=== PATIENT | female | born 1980 | race Caucasian/White ===

== ENCOUNTER 2016-11-09 18:05 | Emergency (ER) | payer OTHER ==
[2016-11-09 19:55] VITALS: BP 113/67
[2016-11-09] MEDS ORDERED: Amoxicillin/Clavulanate TAB* 875 MG PO ONE (20:22)
--- NOTE | 2016-11-09 21:30 | UC ---
Throat Pain/Nasal Pankaj HPI - HPI Summary HPI Summary: HEAD ACHE, SINUS CONGESTION, EAR FULLNESS, PRESSURE UNDER EYES WORSENING FOR ONE WEEK. HISTORY OF FREQUENT SINUS INFECTIONS - History of Current Complaint Chief Complaint: UCGeneralIllness Stated Complaint: SINUS COMPLAINT Time Seen by Provider: 11/09/16 19:44 Hx Obtained From: Patient Hx Last Menstrual Period: DEPO Onset/Duration: Gradual Onset, Lasting Weeks, Still Present Severity: Moderate Pain Intensity: 0 Pain Scale Used: 0-10 Numeric Cough: None Associated Signs & Symptoms: Positive: Sinus Discomfort, Nasal Discharge. Negative: Dysphagia, Hoarseness, Fever - Epiglottits Risk Factors Epiglottis Risk Factors: Negative - Allergies/Home Medications Allergies/Adverse Reactions: Allergies Allergy/AdvReac Type Severity Reaction Status Date / Time Prednisone AdvReac Intermediate See Comment Verified 11/09/16 19:55 Home Medications: Home Medications Multiple Vitamins W/ Minerals [Hair Skin and Nails Formu] 1 tab PO BID 11/09/16 [History Confirmed 11/09/16] Pregabalin CAP(*) [Lyrica CAP(*)] 200 mg PO BID 11/09/16 [History Confirmed ] Spironolactone 50 mg PO TID 11/09/16 [History Confirmed 11/09/16] PMH/Surg Hx/FS Hx/Imm Hx Previously Healthy: Yes Endocrine History Of: Denies: Diabetes Cardiovascular History Of: Denies: Hypertension, Pacemaker/ICD Respiratory History Of: Reports: Asthma GI/ History Of: Denies: Renal Disease - Surgical History Surgical History: Yes Surgery Procedure, Year, and Place: Lt BREAST BIOPSY - BENIGN - Family History Known Family History: Negative: Respiratory Disease - Social History Occupation: Employed Full-time Lives: With Family Alcohol Use: None Substance Use Type: None Smoking Status (MU): Heavy Every Day Tobacco Smoker Type: Cigarettes Amount Used/How Often: 1/4 PPD Length of Time of Smoking/Using Tobacco: 20+ YRS Review of Systems Constitutional: Negative Skin: Negative Eyes: Negative ENT: Ear Ache, Nasal Discharge Respiratory: Negative Cardiovascular: Negative Gastrointestinal: Negative Genitourinary: Negative Motor: Negative Neurovascular: Negative Musculoskeletal: Negative Neurological: Negative Psychological: Negative All Other Systems Reviewed And Are Negative: Yes Physical Exam Triage Information Reviewed: Yes Appearance: No Pain Distress, Well-Nourished, Ill-Appearing - MODERATE Vital Signs: Initial Vital Signs Temp 98.2 F 11/09/16 19:48 Pulse 99 11/09/16 19:48 Resp 16 11/09/16 19:48 BP 113/67 11/09/16 19:48 Pulse Ox 98 11/09/16 19:48 Vital Signs Reviewed: Yes Eye Exam: Normal Eyes: Positive: Conjunctiva Clear ENT: Positive: Hearing grossly normal, Pharynx normal, Nasal congestion, TM bulging, TM dull Dental Exam: Normal Neck exam: Normal Neck: Positive: Supple, Nontender, No Lymphadenopathy Respiratory Exam: Normal Respiratory: Positive: Chest non-tender, Lungs clear, Normal breath sounds, No respiratory distress, No accessory muscle use Cardiovascular Exam: Normal Cardiovascular: Positive: RRR, No Murmur, Pulses Normal Abdominal Exam: Normal Abdomen Description: Positive: Nontender, No Organomegaly Musculoskeletal Exam: Normal Musculoskeletal: Positive: Strength Intact, ROM Intact Neurological Exam: Normal Psychological Exam: Normal Psychological: Positive: Normal Response To Family Skin Exam: Normal Throat Pain/Nasal Course/Dx - Differential Dx/Diagnosis Differential Diagnosis/HQI/PQRI: Otitis Media, Sinusitis, URI Provider Diagnoses: SINUSITIS Discharge - Discharge Plan Condition: Stable Disposition: HOME Prescriptions: Amoxicillin/Clavulanate TAB* [Augmentin TAB 875*] 875 mg PO BID #20 tab Meclizine TAB* [Antivert 12.5 TAB*] 25 mg PO TID PRN #14 tab PRN Reason: Dizziness Patient Education Materials: Sinusitis (ED) Referrals: LUNA Haq [Primary Care Provider] -
== END 2016-11-09 20:30 | disposition home or self-care (01) ==
LOC: UCCORT 18:05
DX: J32.9 Chronic sinusitis, unspecified (principal); J45.909 Unspecified asthma, uncomplicated; F17.210 Nicotine dependence, cigarettes, uncomplicated
CPT/HCPCS: 99212; A9270-GY; G0463

== ENCOUNTER 2017-08-15 06:02 | Day surgery (SDC) | payer OTHER ==
--- NOTE | 2017-08-08 07:25 | HP ---
PREOPERATIVE HISTORY AND PHYSICAL: DATE OF ADMISSION/SURGERY: 08/15/17 ATTENDING SURGEONS: Luis Goyal MD, and Tyler Khan MD * (DICTATD BY ELI OMER) PROCEDURE: Right knee arthroscopic surgery by Dr. Goyal and right posterior ankle ganglion cyst excision with Dr. Khan. CHIEF COMPLAINT: Right knee pain and right ankle pain. HISTORY OF PRESENT ILLNESS: Aurora is a 37-year-old female, who presents to the clinic for right knee pain due to a medial meniscus injury. She has failed conservative measures to include injection and therapy and therefore agreed to undergo a right knee arthroscopic surgery with Dr. Goyal. She also has a symptomatic right posterior ankle ganglion that is recurrent and has failed conservative measures and therefore, agreed to undergo a right posterior ankle ganglion cyst excision with Dr. Khan. PAST MEDICAL HISTORY: Asthma and allergy. PAST SURGICAL HISTORY: Breast biopsy. MEDICATIONS: 1. Lyrica 100 mg 1 by mouth 3 times a day. 2. Loratadine 10 mg 1 by mouth daily. 3. Spironolactone 50 mg 3 by mouth daily. 4. Caltrate 600 mg-800 mg plus vitamin D, take 1 capsule by mouth twice daily. 5. Multivitamin daily. 6. Plexus BioCleanse daily. 7. Probiotic 1 by mouth every day. ALLERGIES: PREDNISONE. FAMILY HISTORY: Positive for diabetes and cancer. SOCIAL HISTORY: She works as a dental hygienist. She smokes 3 to 5 cigarettes a day and is working on smoking cessation. She reports occasional alcohol consumption. REVIEW OF SYSTEMS: A 14-point review of systems was reviewed with the patient, positive for right knee pain and right ankle pain, otherwise negative. Denies syncope, fevers, chills, chest pain, shortness of breath, history of DVT or PE, history of bleeding disorders. PHYSICAL EXAMINATION GENERAL: Well-developed, well-nourished 37-year-old female, in no acute distress. Alert and oriented x3. Appropriate mood and affect. VITAL SIGNS: Height 64, weight 130. Blood pressure 114/72, respiratory rate 20 , temperature 98.5. BMI 22.3. HEENT: Normocephalic, atraumatic. PERRLA. Throat: Clear. NECK: Supple. PULMONARY: Lungs clear to auscultation bilaterally. No wheezing, rhonchi, or rales. CARDIO: Regular rate and rhythm. S1, S2. No murmurs, gallops, or rubs. No edema. ABDOMEN: Positive bowel sounds, soft, and nontender. NEURO: Alert and oriented x3. Cranial nerves grossly intact. Sensation is intact to light touch. MUSCULOSKELETAL: Right lower extremity, the skin is intact. No warmth or erythema. Trace effusion in the knee. Range of motion 0 to 135. Stable with varus and valgus stress. Stable Varun. Negative posterior drawer. Mild discomfort to Jaden. Mild tenderness over the patellofemoral joint. She has ankle range of motion of 10 to 40. +5/5 strength in ankle dorsiflexion and plantar flexion. Tenderness over the posterior lateral aspect of the ankle with a palpable cyst. Calves soft, nontender. +2 PT pulses. Sensation intact to light touch distally. DIAGNOSTIC STUDIES/LAB DATA: MRI of the right ankle revealed cyst in the posterolateral ankle. MRI of the right knee reveals abnormality in the medial meniscus. IMPRESSION: Possible right knee medial meniscus tear and recurrent right posterolateral ankle ganglion cyst. PLAN: The patient is scheduled to undergo a right knee arthroscopic surgery with Dr. Goyal and right posterior ankle ganglion cyst excision with Dr. Khan to follow on 08/15/17. She will return to the office in 10 to 14 days postop for followup and suture removal. ELI OMER [id number]/[facility] #: [id number] KIRSTEN
[~2017-08-15 06:02] MED LIST: Buffered Lidocaine 0.9% SYRIN* 5 ML/SYR SYRINGE INTRADERM ONE
[2017-08-15] MEDS ORDERED: ceFAZolin 2 GM PREMIX (*) 2 GM/50 ML BAG IVPB ONE (06:15)
[2017-08-15] MEDS ORDERED: Buffered Lidocaine 0.9% SYRIN* 5 ML/SYR SYRINGE ONE (06:15)
[2017-08-15] MEDS ORDERED: Lidocaine 1% MPF wEPI 200,000* 30 ML SDV ONE (07:03)
[2017-08-15] MEDS ORDERED: Bupivacaine 0.25% SDV* 30 ML ONE ×2 (07:03→08:18)
[2017-08-15] MEDS ORDERED: Midazolam* 1 MG/ML 2 ML VIAL (2 MG) ONE (07:22)
[2017-08-15] MEDS ORDERED: Propofol* 10 MG/ML 20 ML BTL IV PUSH ONE (07:22)
[2017-08-15] MEDS ORDERED: fentaNYL* 50 MCG/ML 2 ML VIAL (100 MCG VIAL) ONE (07:22)
[2017-08-15] MEDS ORDERED: Dexamethasone IV* 4 MG/ML 1 ML (4 MG) ONE (07:37)
[2017-08-15] MEDS ORDERED: Ondansetron INJ* 2 MG/ML VIAL ONE (07:54)
[2017-08-15] MEDS ORDERED: Ketorolac INJ* 30 MG/ML 1 ML VIAL ONE (07:54)
[2017-08-15] MEDS ORDERED: Naloxone* 0.4 MG/ML 1 ML VIAL IV PRN (08:00)
[2017-08-15] MEDS ORDERED: HYDROmorphone INJ* 1 MG/ML CARPUJECT SYRINGE IV PRN (08:00)
[2017-08-15] MEDS ORDERED: oxyCODONE/Acetamin 5/325 MG* TAB PO PRN (08:00)
[2017-08-15] MEDS ORDERED: fentaNYL* 50 MCG/ML 2 ML VIAL (100 MCG VIAL) IV PRN (08:00)
[2017-08-15] MEDS ORDERED: HYDROcodone/ACETAMIN 5-325 MG* 1 TAB PO PRN (08:00)
[2017-08-15] MEDS ORDERED: DiMENhydriNATE IV* 50 MG/ML VIAL IV PUSH PRN (08:00)
[2017-08-15] MEDS ORDERED: Ondansetron INJ* 2 MG/ML VIAL IV PRN (08:00)
[2017-08-15] MEDS ORDERED: oxyCODONE/Acetamin 5/325 MG* TAB ONE (10:02)
[2017-08-15 10:04] VITALS: BP 111/78
--- NOTE | 2017-08-15 22:09 | OP ---
CC: PAMELA, LUNA [place] * DATE OF OPERATION: 08/15/17 - [facility] DATE OF : 82 SURGEON: Luis Goyal MD LABOR TRAINER: ELI Smith. An bilingual administrative assistant was needed for the entirety of the case to help with positioning, retraction, and utilized throughout all portions of the case. This is a case that was done in conjunction with Dr. Khan. Please see his operative note for his portion of the case. ANESTHESIOLOGIST: Dr. Henderson. ANESTHESIA: General. PRE-OP DIAGNOSIS: Right knee synovitis and impingement. POST-OP DIAGNOSES: Right knee synovitis and impingement with lateral meniscal root tear. OPERATIVE PROCEDURE: Right knee arthroscopy with: 1. Synovectomy of the anterior medial and lateral compartments. 2. Partial lateral meniscectomy. COMPLICATIONS: None. ESTIMATED BLOOD LOSS: Minimal. TOURNIQUET TIME: Zero minutes. INDICATIONS: Aurora Palmer is a 37-year-old female who has had persistent knee pain with anterior base knee pain as well as deep posterior ache that has failed conservative management. She has tried months and months of physical therapy and multiple injections. At this point, repeated steroid injections were found to be possibly harming for her cartilage, therefore a diagnostic arthroscopy was recommended. Risks and benefits of surgery were discussed at length and include, but are not limited to bleeding; infection; damage to nerves , vessels, surrounding structures; wound nonhealing; persistent pain; need for further surgery; scarring; stiffness; incomplete relief of symptoms and risks of anesthesia. DESCRIPTION OF PROCEDURE: The patient was greeted in the preoperative area by the attending surgeon. Correct extremity was marked and consent was confirmed. The patient was brought back to the operating suite, she was placed in supine position on the operating table. She then underwent general anesthesia and LMA intubation after which the unsterile tourniquet was placed high on the proximal thigh. The lateral post was positioned. The right leg was then prepped and draped in the usual sterile fashion using a chlorhexidine soap, scrub, and alcohol wipe, and a final prep with ChloraPrep. After appropriate surgical pause indicating site, side, procedure, and administration of antibiotics, the knee was intra-articularly injected with 1% lidocaine with epi. The lateral portal was made sharply with an 11-blade. The scope was introduced into the joint. Joint was examined. There was abundant synovitis and fat pad, it was difficult to visualize patella due to the abundant synovitis. There was plica medially and laterally. The ligamentum was still intact. The anteromedial portal was made in an outside-in fashion. Using a 18-gauge needle for localization, the shaver was used to debride back the abundant fat pad in the ligamentum. Once this was done, the medial compartment was examined. There were grade 0 to 1 changes to the medial femoral condyle. The medial meniscus was intact, it was probed, there was no evidence of unstable tear. There was no evidence of posteromedial tear. The knee was placed in [id number] position. There was some softening and grade 1 to 2 changes of the lateral plateau and particularly posterior aspect of the lateral compartment. There was fraying of the lateral meniscus as well as tearing of the posterior root of approximately 30%. The shaver was used to debride this back and also debride the unstable fraying of the body of the meniscus. The remainder of the meniscus was probed and found to be intact. The attention was directed anteriorly. Abundant synovectomy was done using a shaver as well as electrocautery device. This was tracked laterally as well as medially. The plicae were removed. The knee cap was visualized. There were grade 1 changes to the patella and the trochlea. There was small evidence of fissuring, but no full thickness tears, no unstable tearing. The knee was thoroughly lavaged with sterile saline. The wounds were copiously irrigated with sterile saline. The portals were closed with 3-0 nylon. The knee was intra- articularly injected with 0.25% Marcaine plain. Sterile dressings were applied. She was then prepped and draped for Dr. Khan's procedure. After Dr. Khan's procedure, she was awoken from anesthesia and transferred to PACU in stable condition. POSTOPERATIVE PLAN: With respect to my surgery, she is allowed to bend and straighten as soon as she feels comfortable. She can weight bear as soon as Dr. Khan allows her to. Otherwise, she will be on crutches. DVT prophylaxis was considered, but deferred due to no previous personal or family history. I will see the patient back in about 10 to 14 days in conjunction with Dr. Khan. [id number]/[facility] #: [id number] [facility]
--- NOTE | 2017-08-15 23:34 | OP ---
DATE OF OPERATION: 08/15/17 - [facility] DATE OF : 82 SURGEON: Tyler Khan MD. INSURANCE SOLICITOR: ELI Smith. ANESTHESIOLOGIST: Dr. Henderson. ANESTHESIA: General endotracheal anesthesia with local anesthesia provided by the surgeon. PRE-OP DIAGNOSIS: Right posterolateral ankle pain and posterior ankle ganglion cyst. POST-OP DIAGNOSES: 1. Right posterior ankle ganglion cyst. 2. Peroneus brevis and peroneus longus tenosynovitis. 3. Peroneus brevis low lying muscle belly. OPERATIVE PROCEDURE: 1. Excision of posterior ankle ganglion cyst. 2. Tenolysis and debridement of peroneus longus tenosynovitis. 3. Tenolysis, debridement, excision of low lying muscle belly of peroneus brevis. TOURNIQUET TIME: Less than 1 hour at 250 mmHg with a well-padded thigh tourniquet. ESTIMATED BLOOD LOSS: Minimal. COMPLICATIONS: None. IMPLANTS: None. STATUS: Stable from the operating room to the recovery room, then home. INDICATIONS: Aurora has had longstanding posterolateral ankle pain. She has a known ganglion cyst in the posterior aspect of the ankle, which had been aspirated and injected a couple of times prior to her seeing me. It has continued to recur and she has continued to have posterolateral ankle pain. We did discuss both nonoperative and operative treatment options at length in the office as well as in the preoperative holding area and she did express her desire to move forward with surgery. Further, the nature and risks of surgery were reviewed in careful detail in the office as well as in the preoperative holding area. Our discussions regarding the risks of surgery included but were not limited to infection, wound problems, nerve injury, neuroma, chronic regional pain syndrome, persistent symptoms, recurrence of the cyst, persistent problems, failure of the surgery, and even a remote chance of a catastrophic complication including the loss of limb. DESCRIPTION OF PROCEDURE: The patient was seen in the preoperative holding unit and informed written consent was obtained. The appropriate extremity was marked. The patient was then brought to the operating room and carefully positioned on the operating room table. Anesthesia was induced. All bony prominences were padded with great care. A chlorhexidine based pre-scrub was performed followed by a standard prep and drape with ChloraPrep. Surgical safety pause was then conducted in which we confirmed the appropriate patient, extremity, planned procedure, availability of equipment, indication and administration of prophylactic antibiotics and DVT prophylaxis in the form of a compression boot on the nonsurgical extremity. A well-padded thigh tourniquet was applied prior to prepping and draping. The tourniquet was inflated after an Esmarch exsanguination. I began with an approximately 6-cm incision overlying the distal fibula. Dissection was carried down bluntly through the soft tissues to the level of the periosteum and superficial peroneal retinaculum. Superficial hemostasis was obtained. Care was taken to protect both the superficial peroneal nerve as well as the sural nerve, which were not visualized during the procedure. The superior peroneal retinaculum layer was defined. At this point, I sharply took down the superior peroneal retinaculum off the posterior aspect of the fibula. Care was taken to protect the tendons while doing this. The tendons were exposed. There was a considerable amount of tenosynovitis surrounding both the peroneus brevis and peroneus longus tendons. Additionally, there was a very low lying muscle belly of the peroneus brevis which went all the way down to where the tendons curve around the distal fibula. I performed a tenosynovectomy of the peroneus longus. I then performed a tenosynovectomy of the peroneus brevis and excised the distal low lying muscle belly. I carefully inspected the tendons and there were no tears seen in the tendons. At this point, I dislocated the tendons anteriorly with the use of Ida drains and incised through the floor of the peroneal tendon sheath to access the posterior ankle joint. The ganglion was then encountered and carefully dissected around its periphery using blunt dissection. Once the ganglion was well defined it was excised in its totality and amputated at its stalk. The stalk was then thoroughly coagulated. Hemostasis was then achieved and the wound was copiously irrigated. While she did have a bit of a shallow retrofibular groove, she has never complained of peroneal instability and did not have any on exam, so this was left as is. The tendons were reduced. I repaired the superior peroneal retinaculum utilizing #1 Vicryl suture in transosseous horizontal mattress fashion, multiple sutures were utilized. This was then appropriately tensioned. The remainder of the superior peroneal retinaculum was then oversewn to the periosteum of the fibula to provide a nice closure of the superior peroneal retinaculum, a [place] was able to be slid up the peroneal sheath showing that there was plenty of room for the tendons and the sheath. Again, the wound was copiously irrigated and then closed in a layered fashion utilizing 3-0 Monocryl and 3-0 nylon. A sterile dressing was then applied followed by a splint with the ankle in a neutral position. All needle and sponge counts were correct at the end of the case. The patient was awakened from anesthesia and transferred to the recovery room in stable condition. There were no complications. ATTESTATION: I attest that I was present, scrubbed and performed the entire procedure myself. POSTOPERATIVE PLAN: The patient will remain nonweightbearing for an anticipated duration of 6 weeks. Follow up will be in 2 weeks for likely suture removal, Steri- Strip application, and transition into a nonweightbearing short-leg cast. [id number]/[facility] #: [id number] [facility]
== END 2017-08-15 10:34 | disposition home or self-care (01) ==
LOC: OR 06:02
PROVIDERS: ATTEND Orthopaedic Surgery
DX: M23.261 Derangement of other lateral meniscus due to old tear or injury, right knee (principal); M65.861 Other synovitis and tenosynovitis, right lower leg; M67.471 Ganglion, right ankle and foot; M65.871 Other synovitis and tenosynovitis, right ankle and foot; F17.210 Nicotine dependence, cigarettes, uncomplicated
CPT/HCPCS: 81025; 88304; A9270-GY; C1776; J0690; J1100; J1885; J2001; J2250; J2405; J2704; J3010

== ENCOUNTER 2017-12-24 14:30 | Emergency (ER) | payer OTHER ==
--- OUTSIDE RECORDS SUMMARY | 2017-12-24 14:51 | XMS REPORT ---
:1980 External Reference #:[id number] Author Organization [facility] Address [address] [place] [address] Phone [phone] Care Team Providers Name Role Phone Trevor Galan MD Care Team Information Aligner Unavailable Trevor Galan MD Primary Care Physician Unavailable Payers Type Date Identification Numbers Payment Provider Subscriber Commercial Policy Number: [id number] [facility] Aurora Palmer PayID: [id number] [address] [place] [address] Problems Date Description Provider Status Onset: 05/15/2017 Smokes tobacco daily PATRICIA Rodgers Active Onset: 11/03/2016 Uncomplicated moderate persistent Eilna Sauer Fenstermacher, Active asthma RPA-C Onset: 10/12/2015 Moderate persistent asthma, Elina SGreta Fenstermacher, Active uncomplicated RPA-C Onset: 10/12/2015 Allergic rhinitis Elina Elkinsr, Active RPA-C Onset: 10/12/2015 Allergic rhinitis due to pollen Elina Cole, Active RPA-C Social History Type Date Description Comments Smoke-Free Home is not smoke-free Pets 1 cat Cigarette Use Light tobacco smoker (10 or fewer cigarettes/day) Smoking Light tobacco smoker (10 or fewer cigarettes/day) Allergies, Adverse Reactions, Alerts Date Description Reaction Status Severity Comments 08/26/2013 NKDA active Medications Medication Date Status Form Strength Qnty SIG Indications Ordering Provider Melzal Allergy 11/27 Active Tablets 5mg 30tab take 1 J30.1 Angelo 24H s tablet (5 Deloris Carbone MD mg) by oral route once daily as needed Qnasl Childrens 05/15 Active Aerosol 40mcg/Act 1unit 2 puff oph /2016 s once a Deloris Carbone MD day Nasonex 05/15 Active Suspension 50mcg/Act 1unit spray 2 J45.40 oph s sprays in Deloris Carbone MD each nostril by intranasa l route once daily. Loratadine 10/11 Active Tablets 10mg 30tab Take One J30.1 oph s Tablet By Deloris Carbone MD Mouth Daily as Needed. Ventolin HFA 09/01 Active Aerosol 108(90Bas 8gm inhale 2 e) puffs by Deloris Carbone MD mcg/Act inhalatio n route q4 hours as needed Lyrica Active Capsules 100mg take 1 Unknown /0000 capsule (100 mg) by oral route 3 times per day Spironolactone Active Tablets 100mg take 1 Unknown /0000 tablet (100 mg) by oral route once daily Caltrate 600+D Active Chewtabs 600-800mg chew 2 Unknown Soft /0000 -Unit tablets by oral route daily Advair HFA Active J45.40 Unknown /0000 Advair HFA 00 Active J45.40 Unknown /0000 Mometasone 05/15 Hx Suspension 50mcg/Act 17gm instill 2 J45.40 Christopher sprays Deloris Carbone MD - into each 11/27 nostril once daily Qnasl 01/17 Hx Aerosol 80mcg/Act 8.700 2 puffs J30.1 oph /2015 gm each Deloris Carbone MD - nostril 11/03 every Nasonex 10/11 Hx Suspension 50mcg/Act 1unit spray 2 J30.1 oph /2015 s sprays in Deloris Carbone MD - each 01/17 nostril by intranasa l route once daily. Nasacort 10/10 Hx Aerosol 55mcg/Act 1unit 2 sprays formerly [facility] 24HR /2015 s in each Deloris Carbone MD - nostril 11/03 once day Dulera 03/16 Hx Aerosol 200-5mcg/ 13gm inhale 2 Act puffs by Deloris Carbone MD - inhalatio 11/03 n route times per day in the morning and evening Nasonex 09/01 Hx Suspension 50mcg/Act 1unit spray 2 s sprays in Deloris Carbone MD - each 10/11 nostr by intranasa l route once daily Biotin Hx - 05/15 Magnesium Oxide Hx Capsules 400mg - 11/27 Hair Skin Nails Hx Capsules - 11/27 Multivitamins Hx Capsules - 11/27 Medications Administered in Office Medication Date Status Form Strength Qnty SIG Indications Ordering Provider Allergy 12/12/ Administered Injection Christopher Injection 2 2016 Deloris Carbone MD Or More Allergy 11/21/ Administered Injection Christopher Injection 2 2016 Deloris Carbone MD Or More Allergy 11/14/ Administered Injection Christopher Injection 2 2016 Deloris Carbone MD Or More Allergy 11/07/ Administered Injection Christopher Injection 2 2016 Deloris Carbone MD Or More Allergy 09/26/ Administered Injection Christopher Injection 2 2016 Deloris Carbone MD Or More Allergy 09/12/ Administered Injection Christopher Injection 2 2016 Deloris Carbone MD Or More Allergy 08/29/ Administered Injection Christopher Injection 2 2016 Deloris Carbone MD Or More Allergy 08/15/ Administered Injection Christopher Injection 2 2016 Deloris Carbone MD Or More Allergy 07/18/ Administered Injection Christopher Injection 2 2015 Deloris Carbone MD Or More Allergy 07/04/ Administered Injection Christopher Injection 2 2015 Deloris Carbone MD Or More Allergy 06/20/ Administered Injection Christopher Injection 2 2015 Deloris Carbone MD Or More Allergy 06/06/ Administered Injection Christopher Injection 2 2015 Deloris Carbone MD Or More Allergy 05/23/ Administered Injection Christopher Injection 2 2015 Deloris Carbone MD Or More Allergy 05/09/ Administered Injection Christopher Injection 2 2015 Deloris Carbone MD Or More Allergy 04/25/ Administered Injection Christopher Injection 2 2015 Deloris Carbone MD Or More Allergy 04/11/ Administered Injection Christopher Injection 2 2015 Deloris Carbone MD Or More Allergy 03/21/ Administered Injection Christopher Injection 2 2015 Deloris Carbone MD Or More Allergy // Administered Injection Christopher Injection 2 2015 Deloris Carbone MD Or More Allergy 02/21/ Administered Injection Christopher Injection 2 2015 Deloris Carbone MD Or More Allergy 02/02/ Administered Injection Christopher Injection 2 2015 Deloris Carbone MD Or More Allergy 01/17/ Administered Injection Christopher Injection 2 2015 Deloris Carbone MD Or More Allergy 12/22/ Administered Injection Christopher Injection 2 2015 Deloris Carbone MD Or More Allergy 12/08/ Administered Injection Christopher Injection 2 2015 Deloris Carbone MD Or More Allergy 11/22/ Administered Injection Christopher Injection 2 2015 Deloris Carbone MD Or More Allergy 11/17/ Administered Injection Christopher Injection 2 2015 Deloris Carbone MD Or More Allergy 11/10/ Administered Injection Christopher Injection 2 2015 Deloris Carbone MD Or More Allergy // Administered Injection Christopher Injection 2 2015 Deloris Carbone MD Or More Allergy 10/27/ Administered Injection Christopher Injection 2 2015 Deloris Carbone MD Or More Allergy 10/20/ Administered Injection Christopher Injection 2 2015 Deloris Carbone MD Or More Allergy 10/11/ Administered Injection Christopher Injection 2 2015 Deloris Carbone MD Or More Allergy // Administered Injection Christopher Injection 2 2015 Deloris Carbone MD Or More Allergy 03// Administered Injection Christopher Injection 2 2015 Deloris Carbone MD Or More Allergy 09/23/ Administered Injection Christopher Injection 2 2015 Deloris Carbnoe MD Or More Allergy 09/16/ Administered Injection Christopher Injection 2 2015 Deloris Carbone MD Or More Allergy 09/09/ Administered Injection Christopher Injection 2 2015 Deloris Carbone MD Or More Allergy 02// Administered Injection Christopher Injection 2 2015 Deloris Carbone MD Or More Allergy 08/26/ Administered Injection Christopher Injection 2 2015 Deloris Carbone MD Or More Allergy 08/10/ Administered Injection Christopher Injection 2 2015 Deloris Carbone MD Or More Allergy 08/05/ Administered Injection Christopher Injection 2 2015 Deloris Carbone MD Or More Allergy 07/27/ Administered Injection Christopher Injection 2 2014 Deloris Carbone MD Or More Allergy 07/20/ Administered Injection Christopher Injection 2 2014 Deloris Carbone MD Or More Allergy 07/15/ Administered Injection Christopher Injection 2 2014 Deloris Carbone MD Or More Allergy 07/08/ Administered Injection Christopher Injection 2 2014 Deloris Carbone MD Or More Allergy 07/01/ Administered Injection Christopher Injection 2 2014 Deloris Carbone MD Or More Allergy 06/22/ Administered Injection Christopher Injection 2 2014 Deloris Carbone MD Or More Allergy 06/17/ Administered Injection Christopher Injection 2 2014 Deloris Carbone MD Or More Allergy 06/10/ Administered Injection Christopher Injection 2 2014 Deloris Carbone MD Or More Allergy 06/01/ Administered Injection Christopher Injection 2 2014 Deloris Carbone MD Or More Allergy 05/27/ Administered Injection Christopher Injection 2 2014 Deloris Carbone MD Or More Vital Signs Date Vital Result Comment 11/27/2017 BP Systolic 106 mmHg BP Diastolic 72 mmHg Height 64 inches 5'4" Weight 134.00 lb BMI (Body Mass Index) 23.0 kg/m2 Heart Rate 89 /min Body Temperature 98.7 F O2 % BldC Oximetry 97 % 05/15/2017 BP Systolic 108 mmHg BP Diastolic 64 mmHg Height 64 inches 5'4" Weight 133.00 lb BMI (Body Mass Index) 22.8 kg/m2 Heart Rate 90 /min Respiratory Rate 11 /min Body Temperature 98.6 F O2 % BldC Oximetry 98 % 11/03/2016 BP Systolic 115 mmHg BP Diastolic 79 mmHg Height 64 inches Weight 135.00 lb BMI (Body Mass Index) 23.2 kg/m2 Heart Rate 98 /min Respiratory Rate 16 /min Body Temperature 99.3 F O2 % BldC Oximetry 97 % 10/12/2015 BP Systolic 116 mmHg BP Diastolic 79 mmHg Height 64 inches 5'4" Weight 130.00 lb BMI (Body Mass Index) 22.3 kg/m2 Heart Rate 91 /min Respiratory Rate 16 /min 04/01/2015 BP Systolic 112 mmHg BP Diastolic 77 mmHg Height 64 inches Weight 130.00 lb Heart Rate 90 /min 03/16/2015 BP Systolic 98 mmHg BP Diastolic 70 mmHg Height 64 inches Weight 130.00 lb Heart Rate 68 /min 03/12/2014 BP Systolic 122 mmHg BP Diastolic 71 mmHg Height 64 inches Weight 120.00 lb Heart Rate 80 /min 09/18/2013 BP Systolic 110 mmHg BP Diastolic 71 mmHg Height 64 inches Weight 118.00 lb Heart Rate 68 /min 08/26/2013 BP Systolic 106 mmHg BP Diastolic 65 mmHg Height 64 inches Weight 118.00 lb Heart Rate 93 /min Results Test Date Test Result H/L Range Note Order 11/27/2017 Nitric Oxide <pending> PFT Supplies <pending> PFT With Bronchodilator <pending> Procedures Date CPT Code Description Status 11/27/2017 55057 Nitric Oxide Gas Determination Completed 11/27/2017 52624 Nitric Oxide Gas Determination Completed 11/27/2017 76958 Bronchodilation Responsiveness Spirometry Pre/Post Completed Bronchodil Adm 11/27/2017 58265 Bronchodilation Responsiveness Spirometry Pre/Post Completed Bronchodil Adm 05/15/2017 43591 Nitric Oxide Gas Determination Completed 05/15/2017 30635 Nitric Oxide Gas Determination Completed 05/15/2017 50336 Bronchodilation Responsiveness Spirometry Pre/Post Completed Bronchodil Adm 05/15/2017 39964 Bronchodilation Responsiveness Spirometry Pre/Post Completed Bronchodil Adm 12/12/2016 26754 Allergy Injection 2 Or More Completed 11/21/2016 33367 Allergy Injection 2 Or More Completed 11/14/2016 94182 Allergy Injection 2 Or More Completed 11/07/2016 36141 Allergy Injection 2 Or More Completed 11/03/2016 01568 Nitric Oxide Gas Determination Completed 11/03/2016 40046 Bronchodilation Responsiveness Spirometry Pre/Post Completed Bronchodil Adm 09/26/2016 03908 Allergy Injection 2 Or More Completed 09/12/2016 25394 Allergy Injection 2 Or More Completed 08/29/2016 29819 Allergy Injection 2 Or More Completed 08/15/2016 40805 Allergy Injection 2 Or More Completed 07/18/2016 17393 Allergy Injection 2 Or More Completed 07/04/2016 72527 Allergy Injection 2 Or More Completed 06/20/2016 09039 Allergy Injection 2 Or More Completed 06/06/2016 09382 Allergy Injection 2 Or More Completed 05/23/2016 41671 Allergy Injection 2 Or More Completed 05/09/2016 40486 Allergy Injection 2 Or More Completed 04/25/2016 83278 Allergy Injection 2 Or More Completed 04/11/2016 27208 Allergy Injection 2 Or More Completed 03/21/2016 66688 Allergy Injection 2 Or More Completed 03/07/2016 07999 Allergy Injection 2 Or More Completed 02/29/2016 58863 Allergy Antigens Single Or Multiple Completed 02/22/2016 94390 Allergy Injection 2 Or More Completed 02/03/2016 57556 Allergy Injection 2 Or More Completed 01/18/2016 26995 Allergy Injection 2 Or More Completed 12/23/2015 72907 Allergy Injection 2 Or More Completed 12/09/2015 59289 Allergy Injection 2 Or More Completed 11/23/2015 69025 Allergy Injection 2 Or More Completed 11/18/2015 35371 Allergy Injection 2 Or More Completed 11/11/2015 05759 Allergy Injection 2 Or More Completed 11/04/2015 82159 Allergy Injection 2 Or More Completed 10/28/2015 94933 Allergy Injection 2 Or More Completed 10/21/2015 33343 Allergy Injection 2 Or More Completed 10/12/2015 16971 Allergy Injection 2 Or More Completed 10/07/2015 61142 Allergy Injection 2 Or More Completed 09/30/2015 42228 Allergy Injection 2 Or More Completed 09/23/2015 50436 Allergy Injection 2 Or More Completed 09/16/2015 56446 Allergy Injection 2 Or More Completed 09/09/2015 80662 Allergy Injection 2 Or More Completed 09/02/2015 72597 Allergy Injection 2 Or More Completed 08/26/2015 36343 Allergy Injection 2 Or More Completed 08/10/2015 26886 Allergy Injection 2 Or More Completed 08/05/2015 55713 Allergy Injection 2 Or More Completed 07/27/2015 23646 Allergy Injection 2 Or More Completed 07/20/2015 12926 Allergy Injection 2 Or More Completed 07/15/2015 16052 Allergy Injection 2 Or More Completed 07/08/2015 45928 Allergy Injection 2 Or More Completed 07/01/2015 59274 Allergy Injection 2 Or More Completed 06/22/2015 62586 Allergy Injection 2 Or More Completed 06/17/2015 44807 Allergy Injection 2 Or More Completed 06/10/2015 76935 Allergy Injection 2 Or More Completed 06/01/2015 43112 Allergy Injection 2 Or More Completed 05/27/2015 14341 Allergy Injection 2 Or More Completed Encounters Type Date Location Provider CPT E/M Dx Office Visit 11/27/2017 3:45p ELI Ledezma 56341 J30.1 J30.89 J45.40 Z72.0 Office Visit 05/15/2017 3:30p PATRICIA Strauss 63044 J30.1 J30.89 J45.40 Z72.0 Office Visit 11/03/2016 2:30p JOHN Young 85385 J45.40 J30.1 J30.89 Office Visit 10/12/2015 8:45a [place] Elina RojasGreta Cole, [facility] 58760 J30.1 J. J45.40 Plan of Care Future Appointment(s):05/30/2018 3:30 pm - ELI Puente at [id number] - ELI PuenteJ30.1 Allergic rhinitis due to pollenNew Medication:Xyzal Allergy 24HR 5 mgFollow up:6 months, PFT and NIOX lfibjO29.89 Other allergic bxfrkedxR84.40 Moderate persistent asthma, uncomplicatedComments:Patient is doing well. Patient's PFT is within normal range today. Patient's exhaled nitric oxide is normal at less than 5 ppb. Patient to continue using Qnasl, 40 mcg, for prophylaxis of her nose and Xyzal for breakthrough nasal symptoms. Patient to use Ventolin for breakthrough chest symptoms.Patient to use HEPA air filter for her bedroom. Patient plans to stop smoking before our next appt. atthis office.Patient to try saline nasal mist to help with nasal symptoms.Z72.0 Tobacco use
--- OUTSIDE RECORDS SUMMARY | 2017-12-24 14:51 | XMS REPORT ---
:1980 External Reference #:[id number] Author Organization [facility] Address [address] [place] [address] Phone [phone] Care Team Providers Name Role Phone Trevor Galan MD Care Team Information Color Tester Unavailable Trevor Galan MD Primary Care Physician Unavailable Payers Type Date Identification Numbers Payment Provider Subscriber Commercial Policy Number: [id number] [facility] Aurora Palmer PayID: [id number] [address] [place] [address] Problems Date Description Provider Status Onset: 05/15/2017 Smokes tobacco daily PATRICIA Rodgers Active Onset: 11/03/2016 Uncomplicated moderate persistent Elina Sauer Fenstermacher, Active asthma RPA-C Onset: 10/12/2015 [...] Form Strength Qnty SIG Indications Ordering Provider Qnasl Childrens 05/15 Active Aerosol 40mcg/Act 1unit 2 puff s once a Deloris Carbone MD day Loratadine 10/11 Active Tablets 10mg 30tab Take One J30.1 s Tablet By Deloris Carbone MD Mouth [...] /0000 -Unit tablets by oral route daily Qnasl 01/17 Hx Aerosol 80mcg/Act 8.700 2 puffs J30.1 /2015 gm each Deloris Carbone MD - nostril 11/03 every Nasonex 10/11 Hx Suspension 50mcg/Act 1unit spray 2 J30.1 s sprays in Deloris Carbone MD - each 01/17 nostr by intranasa l route once daily. Nasacort 10/10 Hx Aerosol 55mcg/Act 1unit 2 sprays [place] [facility] 24H s in each Deloris Carbone MD - nostril 11/03 once day Dulera 03/16 Hx Aerosol 200-5mcg/ 13gm inhale 2 Act puffs by Deloris Carbone MD - inhalatio 11/03 n route times per day in the morning and evening Nasonex 09/01 Hx Suspension 50mcg/Act 1unit spray 2 s sprays in Deloris Carbone MD - each 10/11 nostril by intranasa l route once daily Biotin 00/ Hx Unknown / - 05/15 Magnesium Oxide Hx Capsules 400mg / - 11/27 Hair Skin Nails Hx Capsules Unknown - 11/27 Multivitamins Hx Capsules / - 11/27 Medications Administered in Office Medication Date Status Form Strength Qnty SIG Indications Ordering Provider Allergy 05/16/ Administered Injection Christopher Injection 2 2016 Deloris [...] 2015 Deloris Carbone MD Or More Allergy 03/07/ Administered Injection Christopher Injection 2 2015 Deloris [...] 2015 Deloris Carbone MD Or More Allergy 11/03/ Administered Injection Christopher Injection 2 2015 Deloris Carbone MD Or More Allergy 10/27/ Administered Injection Christopher Injection 2 2015 Deloris Carbone MD Or More Allergy 10/20/ Administered Injection Christopher Injection 2 2015 Deloris Carbone MD Or More Allergy 10/11/ Administered Injection Christopher Injection 2 2015 Deloris Carbone MD Or More Allergy 10/06/ Administered Injection Christopher Injection 2 2015 Deloris Carbone MD Or More Allergy 09/29/ Administered Injection Christopher Injection 2 2015 Deloris Carbone MD Or More Allergy 09/23/ Administered Injection Christopher Injection 2 2015 Deloris Carbone MD Or More Allergy 09/16/ Administered Injection Christopher Injection 2 2015 Deloris Carbone MD Or More Allergy 09/09/ Administered Injection Christopher Injection 2 2015 Deloris Carbone MD Or More Allergy 09/02/ Administered Injection Christopher Injection 2 2015 Deloris [...] 118.00 lb Heart Rate 93 /min Results Description No Information Procedures Date CPT Code Description Status 05/15/2017 75003 Nitric Oxide Gas Determination Completed 05/15/2017 99467 Nitric Oxide Gas Determination Completed 05/15/2017 19104 Bronchodilation Responsiveness Spirometry Pre/Post Completed Bronchodil Adm 05/15/2017 13903 Bronchodilation Responsiveness Spirometry Pre/Post Completed Bronchodil Adm 12/12/2016 39406 Allergy Injection 2 Or More Completed 11/21/2016 51539 Allergy Injection 2 Or More Completed 11/14/2016 34465 Allergy Injection 2 Or More Completed 11/07/2016 77781 Allergy Injection 2 Or More Completed 11/03/2016 14296 Nitric Oxide Gas Determination Completed 11/03/2016 83384 Bronchodilation Responsiveness Spirometry Pre/Post Completed Bronchodil Adm 09/26/2016 87638 Allergy Injection 2 Or More Completed 09/12/2016 70952 Allergy Injection 2 Or More Completed 08/29/2016 29556 Allergy Injection 2 Or More Completed 08/15/2016 15947 Allergy Injection 2 Or More Completed 07/18/2016 49446 Allergy Injection 2 Or More Completed 07/04/2016 88922 Allergy Injection 2 Or More Completed 06/20/2016 78696 Allergy Injection 2 Or More Completed 06/06/2016 36631 Allergy Injection 2 Or More Completed 05/23/2016 86526 Allergy Injection 2 Or More Completed 05/09/2016 74546 Allergy Injection 2 Or More Completed 04/25/2016 54122 Allergy Injection 2 Or More Completed 04/11/2016 25959 Allergy Injection 2 Or More Completed 03/21/2016 42664 Allergy Injection 2 Or More Completed 03/07/2016 31849 Allergy Injection 2 Or More Completed 02/29/2016 81473 Allergy Antigens Single Or Multiple Completed 02/22/2016 10366 Allergy Injection 2 Or More Completed 02/03/2016 45751 Allergy Injection 2 Or More Completed 01/18/2016 71782 Allergy Injection 2 Or More Completed 12/23/2015 77429 Allergy Injection 2 Or More Completed 12/09/2015 92086 Allergy Injection 2 Or More Completed 11/23/2015 52935 Allergy Injection 2 Or More Completed 11/18/2015 54949 Allergy Injection 2 Or More Completed 11/11/2015 97009 Allergy Injection 2 Or More Completed 11/04/2015 25591 Allergy Injection 2 Or More Completed 10/28/2015 87272 Allergy Injection 2 Or More Completed 10/21/2015 78089 Allergy Injection 2 Or More Completed 10/12/2015 89989 Allergy Injection 2 Or More Completed 10/07/2015 25755 Allergy Injection 2 Or More Completed 09/30/2015 19833 Allergy Injection 2 Or More Completed 09/23/2015 20291 Allergy Injection 2 Or More Completed 09/16/2015 37862 Allergy Injection 2 Or More Completed 09/09/2015 95996 Allergy Injection 2 Or More Completed 09/02/2015 45655 Allergy Injection 2 Or More Completed 08/26/2015 21445 Allergy Injection 2 Or More Completed 08/10/2015 25589 Allergy Injection 2 Or More Completed 08/05/2015 14307 Allergy Injection 2 Or More Completed 07/27/2015 13281 Allergy Injection 2 Or More Completed 07/20/2015 18300 Allergy Injection 2 Or More Completed 07/15/2015 67364 Allergy Injection 2 Or More Completed 07/08/2015 71649 Allergy Injection 2 Or More Completed 07/01/2015 33322 Allergy Injection 2 Or More Completed 06/22/2015 86132 Allergy Injection 2 Or More Completed 06/17/2015 96013 Allergy Injection 2 Or More Completed 06/10/2015 11476 Allergy Injection 2 Or More Completed 06/01/2015 50949 Allergy Injection 2 Or More Completed 05/27/2015 70809 Allergy Injection 2 Or More Completed Encounters Type Date Location Provider CPT E/M Dx Office Visit 05/15/2017 3:30p PATRICIA Strauss 43954 J30.1 J30.89 J45.40 Z72.0 Office Visit 11/03/2016 2:30p Tova Cole RPA-Justo 22786 J45.40 J30.1 J30.89 Office Visit 10/12/2015 8:45a Benedicto Cole RPA-Justo 80365 J30.1 J30.89 J45.40 Plan of Care 05/15/2017 - PATRICIA RodgersJ30.1 Allergic rhinitis due to pollenComments: Resume Qnasl 40 1-2 sprays each nostril, twice daily. Samples provided.J30.89 Other allergic gagezjgjA64.40 Moderate persistent asthma, uncomplicatedFollow up :6 months with repeat NiOx and PFT.Z72.0 Tobacco useComments:Reconsider taper to [place].
[2017-12-24 15:00] VITALS: BP 102/74
--- NOTE | 2017-12-24 15:20 | UC ---
Hand/Wrist HPI - HPI Summary HPI Summary: Pinched the skin on her R 4th finger between some metal opening her pool. c/o a cut. last tetanus about 10 years ago. 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 - History Of Current Complaint Chief Complaint: UCUpperExtremity Stated Complaint: RIGHT HAND,MIDDLE FINGER INJURY Time Seen by Provider: 12/24/17 15:13 Hx Obtained From: Patient Hx Last Menstrual Period: DEPO ?: No Onset/Duration: Sudden Onset Pain Intensity: 7 Alleviating Factor(s): Nothing Associated Signs And Symptoms: Negative: Weakness, Numbness/Tingling - Allergies/Home Medications Allergies/Adverse Reactions: Allergies Allergy/AdvReac Type Severity Reaction Status Date / Time prednisone Allergy See Comment Verified 12/24/17 15:00 Home Medications: Home Medications Dandelion Root 1 tab PO DAILY 12/24/17 [History Confirmed 12/24/17] PMH/Surg Hx/FS Hx/Imm Hx - Additional Past Medical History Additional PMH: chronic pain L side, acne - Surgical History Surgical History: Yes Surgery Procedure, Year, and Place: Lt BREAST BIOPSY - BENIGN ;. RIGHT ANKLE GANGLION ASPIRATION ;. - Family History Known Family History: Negative: Respiratory Disease - Social History Occupation: Employed Full-time Lives: With Family Alcohol Use: None Substance Use Type: None Smoking Status (MU): Heavy Every Day Tobacco Smoker Type: Cigarettes Amount Used/How Often: 11 cigs every day Length of Time of Smoking/Using Tobacco: 20+ YRS - Immunization History Hx Tetanus, Diphtheria Vaccination: No Vaccination Up to Date: Yes Review of Systems Constitutional: Negative Skin: Other - cut R 4th finger Eyes: Negative ENT: Negative Respiratory: Negative Cardiovascular: Negative Gastrointestinal: Negative Genitourinary: Negative Motor: Negative Neurovascular: Negative Musculoskeletal: Negative Neurological: Negative Psychological: Negative Is Patient Immunocompromised?: No All Other Systems Reviewed And Are Negative: Yes Physical Exam Triage Information Reviewed: Yes Appearance: Well-Appearing Vital Signs: Initial Vital Signs Temp 97.9 F 12/24/17 14:54 Pulse 92 12/24/17 14:54 Resp 16 12/24/17 14:54 BP 102/74 12/24/17 14:54 Pulse Ox 98 12/24/17 14:54 Vital Signs Reviewed: Yes Eyes: Positive: Conjunctiva Clear ENT: Positive: Normal ENT inspection Neck: Positive: Supple, Nontender, No Lymphadenopathy Respiratory: Positive: Lungs clear, Normal breath sounds Cardiovascular: Positive: RRR, No Murmur Abdomen Description: Positive: Nontender, No Organomegaly, Soft Bowel Sounds: Positive: Present Musculoskeletal: Positive: ROM Intact Neurological: Positive: Alert Psychological: Positive: Age Appropriate Behavior Skin Exam: Normal, Other - 1cm x 2 mm skin avulsion on pad of R 4th finger. s/v/ m is intact. fat seen. scant bleeding. Hand/Wrist Course/Dx - Course Course Of Treatment: Procedure: time out done. site prep betadine. local with tip of 30g needled. explored, no fb, tendeon, mm damage. irrigated sterile water. prep betadine. closed 5-0 nylone and single horizontal mattress stitch. sterile technique used. pt tolerated well. nurse applied antibiotic ointment and bandage. - Differential Dx/Diagnosis Provider Diagnoses: 1cm x 2mm skin avulsion R 4th finger sutured Discharge - Sign-Out/Discharge Documenting (check all that apply): Discharge/Admit/Transfer - Discharge Plan Condition: Stable Disposition: HOME Patient Education Materials: Care For Your Stitches (DC) Referrals: LUNA Haq [Primary Care Provider] - If Needed Additional Instructions: [facility] f/u 7-10 days - Billing Disposition and Condition Condition: STABLE Disposition: HOME
[2017-12-24] MEDS ORDERED: Lidocaine 1% MPF* 2 ML VIAL INJ ONE (15:29)
[2017-12-24] MEDS ORDERED: Lidocaine 1%* 5 ML VIAL ONE (15:32)
[2017-12-24] MEDS ORDERED: Tetan/Diph/Pertus SYR(Tdap)* 0.5 ML SYR(BOOSTRIX) use SYR IM ONE (15:52)
== END 2017-12-24 16:02 | disposition home or self-care (01) ==
LOC: UCCORT 14:30
DX: S61.204A Unspecified open wound of right ring finger without damage to nail, initial encounter (principal); W23.1XXA Caught, crushed, jammed, or pinched between stationary objects, initial encounter; Y93.9 Activity, unspecified; Y92.007 Garden or yard of unspecified non-institutional (private) residence as the place of occurrence of the external cause; Z23 Encounter for immunization; Z88.8 Allergy status to other drugs, medicaments and biological substances; F17.210 Nicotine dependence, cigarettes, uncomplicated
CPT/HCPCS: 12001; 90471; 90715; 99211; G0463

== ENCOUNTER 2018-01-01 16:37 | Emergency (ER) | payer OTHER ==
[2018-01-01 17:42] VITALS: BP 100/63
--- NOTE | 2018-01-01 17:56 | UC ---
Skin Complaint HPI - HPI Summary HPI Summary: Pt present for suture removal in left 4th finger. sutures placed at [facility] - History of Current Complaint Chief Complaint: UCGeneralIllness Time Seen by Provider: 01/01/18 17:46 Stated Complaint: STITCH REMOVAL Hx Obtained From: Patient Hx Last Menstrual Period: DEPO ?: No Onset/Duration: Sudden Onset Timing: Constant Onset Severity: Mild Current Severity: Mild Pain Intensity: 0 Location: Discrete - left 4th finger Aggravating Factor(s): Touch - Allergy/Home Medications Allergies/Adverse Reactions: Allergies Allergy/AdvReac Type Severity Reaction Status Date / Time prednisone Allergy See Comment Verified 01/01/18 17:38 Review of Systems Constitutional: Negative Skin: Other - sutures intact left 4th finger Eyes: Negative ENT: Negative Respiratory: Negative Cardiovascular: Negative Gastrointestinal: Negative Genitourinary: Negative Motor: Negative Neurovascular: Negative Musculoskeletal: Negative Neurological: Negative Psychological: Negative Is Patient Immunocompromised?: No All Other Systems Reviewed And Are Negative: Yes PMH/Surg Hx/FS Hx/Imm Hx Previously Healthy: Yes - Surgical History Surgical History: Yes Surgery Procedure, Year, and Place: Lt BREAST BIOPSY - BENIGN ;. RIGHT ANKLE GANGLION ASPIRATION. RIGHT knee meniscus repair. - Family History Known Family History: Negative: Respiratory Disease - Social History Occupation: Employed Full-time Lives: With Family Alcohol Use: None Substance Use Type: None Smoking Status (MU): Heavy Every Day Tobacco Smoker Type: Cigarettes Amount Used/How Often: 11 cigs every day Length of Time of Smoking/Using Tobacco: 20+ YRS Have You Smoked in the Last Year: Yes Household Exposure Type: Cigarettes - Immunization History Most Recent Tetanus Shot: 12/24/17 Hx Tetanus, Diphtheria Vaccination: No Vaccination Up to Date: Yes Physical Exam Triage Information Reviewed: Yes Appearance: Well-Appearing Vital Signs: Initial Vital Signs Temp 98.2 F 01/01/18 17:35 Pulse 98 01/01/18 17:35 Resp 16 01/01/18 17:35 BP 100/63 01/01/18 17:35 Pulse Ox 99 01/01/18 17:35 Vital Signs Reviewed: Yes Eye Exam: Normal ENT: Positive: Hearing grossly normal Dental Exam: Normal Neck exam: Normal Respiratory: Positive: No respiratory distress Musculoskeletal Exam: Normal Neurological Exam: Normal Psychological Exam: Normal Skin Exam: Other - left 4th finger, 1 suture intact no erythema, no drainage, no swelling Course/Dx - Differential Diagnoses - Skin Complaint Differential Diagnoses: Other - suture removal - Diagnoses Provider Diagnoses: left 4th finger suture (removed one suture) Discharge - Sign-Out/Discharge Documenting (check all that apply): Discharge/Admit/Transfer - Discharge Plan Condition: Stable Disposition: HOME Patient Education Materials: Stitches Removal (ED) Referrals: LUNA Haq [Primary Care Provider] - If Needed - Billing Disposition and Condition Condition: STABLE Disposition: Home
== END 2018-01-01 18:03 | disposition home or self-care (01) ==
LOC: UCCORT 16:37
DX: S61.215D Laceration without foreign body of left ring finger without damage to nail, subsequent encounter (principal); X58.XXXD Exposure to other specified factors, subsequent encounter; Y93.9 Activity, unspecified; Y92.9 Unspecified place or not applicable; Z88.8 Allergy status to other drugs, medicaments and biological substances; F17.210 Nicotine dependence, cigarettes, uncomplicated

== ENCOUNTER 2018-04-21 12:11 | Emergency (ER) | payer OTHER ==
[2018-04-21 15:09] VITALS: BP 107/70
--- NOTE | 2018-04-21 16:43 | UC ---
Skin Complaint HPI - HPI Summary HPI Summary: Pt c/o sudden on set of ' generalized itchy skin" X 1 week. Pt reports that skin feels more "itchy" after takin g a "hot shower". Pt denies any erythematous rash, raised or otherwise. Pt denies any use of new soap or lotion. Pt does use tanning love but has not in last 7 days. - History of Current Complaint Chief Complaint: UCSkin Time Seen by Provider: 04/21/18 15:14 Stated Complaint: SKIN COMPLAINT Hx Obtained From: Patient Hx Last Menstrual Period: 04/08/18 ?: No Onset/Duration: Sudden Onset, Lasting Days, Still Present Skin Exposure Onset/Duration: Days Ago Timing: Constant Onset Severity: Mild Current Severity: Mild Pain Intensity: 0 Pain Scale Used: 0-10 Numeric Location: Generalized Character: Pruritus Aggravating Factor(s): Showering - hot water Alleviating Factor(s): Antihistamines Associated Signs & Symptoms: Positive: Negative - Allergy/Home Medications Allergies/Adverse Reactions: Allergies Allergy/AdvReac Type Severity Reaction Status Date / Time prednisone Allergy See Comment Verified 04/21/18 15:09 Review of Systems Constitutional: Negative Skin: Other - pruritis Eyes: Negative ENT: Negative Respiratory: Negative Cardiovascular: Negative Gastrointestinal: Negative Genitourinary: Negative Motor: Negative Neurovascular: Negative Musculoskeletal: Negative Neurological: Negative Psychological: Negative Is Patient Immunocompromised?: No All Other Systems Reviewed And Are Negative: Yes PMH/Surg Hx/FS Hx/Imm Hx Previously Healthy: Yes - Surgical History Surgical History: Yes Surgery Procedure, Year, and Place: Lt BREAST BIOPSY - BENIGN ;. RIGHT ANKLE GANGLION ASPIRATION. RIGHT knee meniscus repair. 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 Lives: With Family Alcohol Use: None Substance Use Type: None Smoking Status (MU): Heavy Every Day Tobacco Smoker Type: Cigarettes Amount Used/How Often: 11 cigs every day Length of Time of Smoking/Using Tobacco: 20+ YRS Have You Smoked in the Last Year: Yes Household Exposure Type: Cigarettes - Immunization History Most Recent Tetanus Shot: 12/24/17 Hx Tetanus, Diphtheria Vaccination: No Vaccination Up to Date: Yes Physical Exam Triage Information Reviewed: Yes Appearance: Well-Appearing Vital Signs: Initial Vital Signs Temp 98.7 F 04/21/18 15:03 Pulse 92 04/21/18 15:03 Resp 16 04/21/18 15:03 BP 107/70 04/21/18 15:03 Pulse Ox 98 04/21/18 15:03 Vital Signs Reviewed: Yes Eye Exam: Normal ENT Exam: Normal ENT: Positive: Hearing grossly normal Dental Exam: Normal Neck exam: Normal Respiratory Exam: Normal Cardiovascular Exam: Normal Musculoskeletal Exam: Normal Neurological Exam: Normal Psychological Exam: Normal Skin Exam: Other - pt is tanned, Course/Dx - Course Course Of Treatment: pt was recently seen by advocacy director, DR. Paulson at [place] office for [facility]. Pt states she is being tested for "everything" - Differential Diagnoses - Skin Complaint Differential Diagnoses: Other - pruritis hemachromatosis hepatitis - Diagnoses Provider Diagnoses: pruritis generalized Discharge - Sign-Out/Discharge Documenting (check all that apply): Patient Departure All imaging exams completed and their final reports reviewed: No Studies - Discharge Plan Condition: Stable Disposition: HOME Patient Education Materials: Itchy Skin (ED) Referrals: Trevor aGlan MD [Primary Care Provider] - If Needed Lucinda Paulson MD [Medical Doctor] - If Needed Additional Instructions: Pruritus Itching is an intense, distracting irritation or tickling sensation that may be felt all over the skin's surface, or confined to just one area. The medical term for itching is pruritus. - Billing Disposition and Condition Condition: STABLE Disposition: Home
== END 2018-04-21 15:51 | disposition home or self-care (01) ==
LOC: UCCORT 12:11
DX: L29.8 Other pruritus (principal); Z88.8 Allergy status to other drugs, medicaments and biological substances; F17.210 Nicotine dependence, cigarettes, uncomplicated
CPT/HCPCS: 99211; G0463

== ENCOUNTER 2019-05-15 15:54 | Emergency (ER) | payer BC ==
[2019-05-15 16:23] VITALS: BP 104/65
--- NOTE | 2019-05-15 17:38 | UC ---
Ear Complaint HPI - HPI Summary HPI Summary: Per RN traige: "Ears started hurting yesterday. Feels like there is a lot of pressure that is constant. Feels heart beat throbbing in her ears. Sick a couple of weeks ago with a bad cough and chest congestion. No drainage, no fever. " =she see's dirt contractor adn uses mometsaone nasal spray. has not beentakling anti- histamine -still smokes -cough is 98% better from when she was sick -no fevers, no sinus pain/pressure. - History of Current Complaint Chief Complaint: UCEar Stated Complaint: BILATERAL EAR COMPLAINT Time Seen by Provider: 05/15/19 17:20 Hx Last Menstrual Period: 04/08/18 Pain Intensity: 4 - Allergies/Home Medications Allergies/Adverse Reactions: Allergies Allergy/AdvReac Type Severity Reaction Status Date / Time Penicillins Allergy See Comment Verified 05/15/19 16:23 prednisone Allergy See Comment Verified 06/17/18 12:10 Home Medications: Home Medications Mometasone 110 MCG MDI * [Asmanex 110 MCG MDI *] 1 puff DAILY 05/15/19 [History Confirmed 05/15/19] PMH/Surg Hx/FS Hx/Imm Hx Previously Healthy: Yes - Surgical History Surgical History: Yes Surgery Procedure, Year, and Place: Lt BREAST BIOPSY - BENIGN;. RIGHT ANKLE GANGLION ASPIRATION;. RIGHT KNEE MENISCUS REPAIR;. - Family History Known Family History: Positive: Other - cirrhosis-family memebers etholics Negative: Respiratory Disease - Social History Alcohol Use: None Substance Use Type: None Smoking Status (MU): Heavy Every Day Tobacco Smoker Type: Cigarettes Amount Used/How Often: 11 cigs every day Length of Time of Smoking/Using Tobacco: 20+ YRS Have You Smoked in the Last Year: Yes Household Exposure Type: Cigarettes - Immunization History Most Recent Tetanus Shot: 12/24/17 Hx Tetanus, Diphtheria Vaccination: No Vaccination Up to Date: Yes Review of Systems All Other Systems Reviewed And Are Negative: Yes Constitutional: Positive: Negative, Fatigue. Negative: Fever, Chills Skin: Positive: Negative. Negative: Rash Eyes: Positive: Negative ENT: Positive: Ear Ache. Negative: Sore Throat, Nasal Discharge, Sinus Congestion, Sinus Pain/Tenderness Respiratory: Positive: Negative. Negative: Cough Cardiovascular: Positive: Negative. Negative: Palpitations, Chest Pain Gastrointestinal: Positive: Negative. Negative: Vomiting, Diarrhea, Nausea Genitourinary: Positive: Negative Motor: Positive: Negative Neurovascular: Positive: Negative Musculoskeletal: Positive: Negative Neurological: Positive: Negative Psychological: Positive: Negative Is Patient Immunocompromised?: No Physical Exam Triage Information Reviewed: Yes Appearance: Well-Appearing, No Pain Distress, Well-Nourished - poor historian but very pleasant Vital Signs: Initial Vital Signs Temp 98.6 F 05/15/19 16:16 Pulse 63 05/15/19 16:16 Resp 18 05/15/19 16:16 BP 104/65 05/15/19 16:16 Pulse Ox 99 05/15/19 16:16 Vital Signs Reviewed: Yes Eye Exam: Normal ENT: Positive: Pharynx normal - + PND, TM bulging, TM dull - left, Sinus tenderness, Uvula midline. Negative: Nasal congestion, Nasal drainage, Tonsillar swelling, Tonsillar exudate Neck exam: Normal Neck: Positive: Supple, Nontender, No Lymphadenopathy Respiratory Exam: Normal Respiratory: Positive: Lungs clear, Normal breath sounds, No respiratory distress, No accessory muscle use. Negative: Crackles, Rhonchi, Stridor, Wheezing Cardiovascular Exam: Normal Cardiovascular: Positive: RRR, No Murmur Abdominal Exam: Normal Musculoskeletal Exam: Normal Neurological Exam: Normal Psychological Exam: Normal Skin Exam: Normal Skin: Negative: Rashes Ear Complaint Course/Dx - Course Course Of Treatment: left AOM, right serous otitis -reporst PCN gave severe vaginal yeast infection. there is no true allergy to it - Differential Dx/Diagnosis Differential Diagnosis/HQI/PQRI: Otitis Externa, Otitis Media, URI Provider Diagnosis: Left acute otitis media Discharge ED - Sign-Out/Discharge Documenting (check all that apply): Patient Departure All imaging exams completed and their final reports reviewed: No Studies - Discharge Plan Condition: Stable Disposition: HOME Prescriptions: Cefdinir cap* [Cefdinir 300 MG cap (NF)] 300 mg PO BID #20 cap Patient Education Materials: Ear Infection (ED) Referrals: Maryanne Echevarria MD [Primary Care Provider] - 1 Week Additional Instructions: It is recommended that you take a probiotic daily while you are on antibiotics. A few common brands that you can buy over the counter are colon health, align and florastor. These can help prevent a colon infection called c diff that can be associated with antibiotic use. -you should restart the anti-histamine. - Billing Disposition and Condition Condition: STABLE Disposition: Home
== END 2019-05-15 17:46 | disposition home or self-care (01) ==
LOC: UCCORT 15:54
DX: H66.92 Otitis media, unspecified, left ear (principal); H65.91 Unspecified nonsuppurative otitis media, right ear; Z88.0 Allergy status to penicillin; Z88.8 Allergy status to other drugs, medicaments and biological substances; F17.210 Nicotine dependence, cigarettes, uncomplicated
CPT/HCPCS: 99212; G0463